=== PATIENT | female | born 1990 | race Caucasian/White ===

== ENCOUNTER 2018-07-24 15:06 | Inpatient (IN) ==
--- NOTE | 2018-07-24 15:34 | P.HPOB ---
History of Present Illness Primary Care Physician: NOT REQUIRED 27-year-old female, at 40 weeks and 2 days gestation, is sent from OB ultrasound for an LILY of 5, with estimated weight 8 pounds. She denies any regular contractions. No leakage of fluid. No vaginal bleeding. OB history: Uncomplicated Medical history: Negative Surgical history: Negative Medications: vitamin Allergies: Negative PMFSH - History History Provided By: Patient - Tobacco History Smoking Status: Never smoker - Substance Use History Substance History: No History of Abuse - Travel History History of Recent Travel: No Medications and Allergies Allergies Allergy/AdvReac Type Severity Reaction Status Date / Time Penicillins Allergy Unknown unknown Verified 07/15/18 18:41 possible childhood reaction Home Medications Medication Instructions Recorded Confirmed Type evening primrose oil 500 mg PO TID 07/15/18 07/15/18 History [id number] acid 1 tab PO DAILY 07/15/18 07/15/18 History [PreNata] Exam Vital signs: Vital Signs 07/24/18 15:30 Temperature 98.7 F Pulse Rate 113 H Respiratory Rate 20 Blood Pressure 121/68 Caprini VTE Risk Assessment Caprini VTE Risk Assessment: No/Low Risk (score <= 1) Caprini Risk Assessment Model: Point Value = 1 Point Value = 2 Point Value = 3 Point Value = 5 Age 41-60 Minor surgery BMI > 25 kg/m2 Swollen legs Varicose veins or History of unexplained or recurrent spontaneous Oral contraceptives or hormone replacement Sepsis (< 1 month) Serious lung disease, including pneumonia (< 1 month) Abnormal pulmonary function Acute myocardial infarction Congestive heart failure (< 1 month) History of inflammatory bowel disease Medical patient at bed rest Age 61-74 Arthroscopic surgery Major open surgery (> 45 min) Laparoscopic surgery (> 45 min) Malignancy Confined to bed (> 72 hours) Immobilizing plaster cast Central venous access Age >= 75 History of VTE Family history of VTE Factor V Leiden Prothrombin [id number] Lupus anticoagulant Anticardiolipin antibodies Elevated serum homocysteine Heparin-induced thrombocytopenia Other congenital or acquired thrombophilia Stroke (< 1 month) Elective arthroplasty Hip, pelvis, or leg fracture Acute spinal cord injury (< 1 month) Prophylaxis Regimen: Total Risk Factor Score Risk Level Prophylaxis Regimen 0-1 Low Early ambulation 2 Moderate Order ONE of the following: *Sequential Compression Device (SCD) *Heparin 5000 units SQ BID 3-4 Higher Order ONE of the following medications: *Heparin 5000 units SQ TID *Enoxaparin/Lovenox 40 mg SQ daily (WT < 150 kg, CrCl > 30 mL/min) *Enoxaparin/Lovenox 30 mg SQ daily (WT < 150 kg, CrCl > 10-29 mL/min) *Enoxaparin/Lovenox 30 mg SQ BID (WT < 150 kg, CrCl > 30 mL/min) AND/OR *Sequential Compression Device (SCD) 5 or more Highest Order ONE of the following medications: *Heparin 5000 units SQ TID (Preferred with Epidurals) *Enoxaparin/Lovenox 40 mg SQ daily (WT < 150 kg, CrCl > 30 mL/min) *Enoxaparin/Lovenox 30 mg SQ daily (WT < 150 kg, CrCl > 10-29 mL/min) *Enoxaparin/Lovenox 30 mg SQ BID (WT < 150 kg, CrCl > 30 mL/min) AND *Sequential Compression Device (SCD) Assessment and Plan - Diagnosis (1) Oligohydramnios Code(s): Z3A.39 - 39 weeks gestation of Status: Acute (2) with 39 completed weeks gestation Code(s): Z3A.39 - 39 weeks gestation of Status: Acute (3) Contracted pelvis Code(s): O47.1 - False labor at or after 37 completed weeks of gestation Status: Acute - Plan 27-year-old female, at 40 weeks and 2 days gestation, is sent from OB ultrasound for an LILY of 5, with estimated weight 8 pounds. 1) c/s for oligo/LGA -Admit to L&D for for oligo/LGA -Risks and benefits of versus vaginal delivery discussed with patient at length, patient consented and decided to proceed with -Category 1 tracing, no decelerations -Preoperative orders -N.p.o. since 1 PM 2) oligohydramnios - proceed w/ c/s as above Pt seen and discussed with Dr. Leobardo Welsh, [employer] Hospitalist Attending note patient seen with residents PGY 3. Received a call patient 40+ week with reactive NST BPP however 8 out of 10 -2 for LILY of 5. Estimated weight by ultrasound today 8 pounds 14 ounces. Patient seen and examined mother had a previous history of delivery for the patient which she states at was 9 pounds 2 ounces discussed with the patient pelvis by clinical evaluation contracted however ultrasound can be off by 2 pounds. Patient offered trial of labor versus delivery patient elects for delivery alternatives benefits complications including but not limited to maternal injury anesthesia related risks infection hemorrhage reoperation risk patient expressed verbal understanding. heart rate category 1 nonemergent delayed due to patient having a full stomach will wait for completed 6 hours. Will change that time parameter showed indications for maternal present.
[2018-07-24] MEDS ORDERED: ceFAZolin 2 GM Premix Inj 2 GM/50 ML PIGGYBACK IV.SIG PRN (16:35)
[2018-07-24] MEDS ORDERED: Citric Acid/Sodium Citrate Liq 30 ML UDC PO SCH (16:45)
[2018-07-24] MEDS ORDERED: Sodium Chloride 0.9% 2 ML Flush PRN IV.FLUSH (16:48)
[2018-07-24 17:04] LABS: Baso % (Auto) 0.3 % (0.0-2.0); Eos % (Auto) 0.2 % (0.0-4.0); Hematocrit 30.2 % (35.0-46.0); Hemoglobin 10.2 gm/dL (11.6-15.3); Lymph # (Auto) 1.6 th/mm3 (1.0-4.8); Lymph % (Auto) 16.5 % (9.0-44.0); Mean Corpuscular HGB Conc 33.9 % (32.0-36.0); Mean Corpuscular Hemoglobin 25.9 pg (27.0-34.0); Mean Corpuscular Volume 76.4 fL (80.0-100.0); Mean Platelet Volume 10.4 fL (7.0-11.0); Mono # (Auto) 0.6 th/mm3 (0.0-0.9); Mono % (Auto) 6.1 % (0.0-8.0); Neut # (Auto) 7.3 th/mm3 (1.8-7.7); Neut % (Auto) 76.9 % (16.0-70.0); Platelet Count 115 th/mm3 (150-450); Red Blood Count 3.95 mil/mm3 (4.00-5.30); Red Cell Distribution Width 16.7 % (11.6-17.2); White Blood Count 9.5 th/mm3 (4.0-11.0)
[2018-07-24 17:49] LABS: Amphetamine Screen,Urine Neg (Neg); Barbiturate Screen,Urine Neg (Neg); Cannabinoid Screen,Urine Neg (Neg); Cocaine Screen,Urine Neg (Neg)
[2018-07-24 17:55] LABS: Opiate Screen,Urine Neg (Neg)
[2018-07-24 18:08] LABS: Alanine Aminotransferase 13 U/L (10-53); Albumin 2.6 g/dL (3.4-5.0); Anion Gap 13 meq/L (5-15); Aspartate Aminotransferase 15 U/L (15-37); Blood Urea Nitrogen 8 mg/dL (7-18); Calcium 7.8 mg/dL (8.5-10.1); Carbon Dioxide 23.5 meq/L (21.0-32.0); Chloride 105 meq/L (98-107); Glomerular Filtration Rate Greater Than 89 mL/min (>89); Glucose,Random 90 mg/dL (74-106); Potassium 3.8 meq/L (3.5-5.1); Sodium 141 meq/L (136-145)
[2018-07-24 18:11] LABS: Alkaline Phosphatase 190 U/L (45-117); Total Protein 6.2 g/dL (6.4-8.2)
[2018-07-24] MEDS ORDERED: Clindamycin 600 mg/NS Premix 600 MG/50 ML PIGGYBACK IV.SIG SCH (19:00)
[2018-07-24] MEDS ORDERED: Sodium Chloride 0.9% 2 ML Flush BID IV.FLUSH SCH (21:00)
[2018-07-24] MEDS: Clindamycin 900 mg/NS Premix 900 MG/50 ML PIGGYBACK IV.SIG SCH (22:31)
[2018-07-24] MEDS ORDERED: Morphine Sulfate PF Inj 5 MG/10 ML Ampul ONE (22:46)
[2018-07-24] MEDS ORDERED: Phenylephrine/NS 1000 MCG/10ML Syringe IV.PUSH ONE (22:48)
[2018-07-24] MEDS ORDERED: Ketorolac Inj 30 MG/ML (IVP) Vial IV.PUSH ONE (22:48)
[2018-07-24] MEDS ORDERED: fentaNYL Citrate Inj 100 MCG/2 ML Ampul ONE (23:25)
--- NOTE | 2018-07-25 00:13 | P.OP ---
- Preoperative Diagnosis (1) Suspected macroscopic fetus (2) Oligohydramnios (3) Contracted pelvis (4) 40 weeks gestation of - Postoperative Diagnosis (1) Oligohydramnios (2) Contracted pelvis (3) 40 weeks gestation of (4) Suspected macroscopic fetus Date of procedure: 07/25/18 Procedure: Primary low uterine segment transverse section Anesthesia: spinal Surgeon: Elizabeth Rogers MD Float Operator: solder technician Estimated blood loss (mL): 500 Pathology: none sent Operation and Findings: Patient is a 27-year-old at 40 weeks 3 days gestation received a call from her provider at [facility] reactive however BPP -2 for LILY of 5 also estimated weight 8 lbs. 14 oz. patient subsequently presents for evaluation pelvic exam contracted pelvis estimated weight by Chinedu's approximately 8-1/2 pounds patient counseled on alternatives benefits complications offered a trial of labor versus delivery patient elects delivery alternatives benefits complications including but not limited to risk of permanent injury to the bowel bladder nerve blood vessels and instruction in the abdomen or pelvis including the fetus. Hemorrhage, reoperation risk. Patient expressed verbal understanding subsequently she was taken to the OR where she was placed under spinal analgesia without incident. Prepped and draped in normal sterile fashion. Pfannenstiel incision was made through the skin. Incision was carried down to the underlying layer of fascia which was incised in the midline dissected laterally digitally superior aspect of the fascia was grasped with Thayer clamps 2 dissected off from the underlying rectus muscle rectus muscle was blood tensions to the peritoneum with care to avoid the bladder. Bladder blade was placed vesicouterine peritoneum identified nicked in the midline subsequently extended laterally with Metzenbaum scissors reposition of the bladder blade. Transverse incision on the lower uterine segment with scalpel. Delivery of the vertex nares and mouth were bulb suctioned followed by delivery of the remainder of the body. A viable infant male delivered without incident Apgars 8 9. Subsequently cord blood collected placenta was manually removed the uterus was externalized cleared of all clot and debris uterus was closed with 1- 0 chromic in a running locked fashion followed by second imbricating Lembert suture. [id number] 2 in the right apex. Paracolic gutters were cleared of all clot and debris uterus was repositioned and the pelvic abdominal cavity. Note no adnexal masses noted. Uterine incision was once again reevaluated once hemostasis was noted to be present proceeded to identify the fascia which was closed with 1 Vicryl in a continuous fashion. Subcutaneous bleeding which was minimal controlled with Bovie pencil. Skin was closed with Monocryl in a continuous fashion. Patient tolerated procedure well sponge lap needle counts correct 2 patient in route to recovery room in stable condition.
[2018-07-25] MEDS ORDERED: Oxytocin 30 Units/500ml Premix 30 UNITS/500 ML BAG IV.SIG ONE (00:51)
[2018-07-25] MEDS ORDERED: Naloxone Inj 0.4 MG/ML Vial IV.PUSH PRN (01:44)
[2018-07-25 02:06] LABS: Bacteria,Urine Rare /hpf; Bilirubin,Urine Negative (Negative); Clarity,Urine Cloudy (Clear); Color,Urine Red (Yellw/Straw); Glucose,Urine (UA) Negative (Negative); Leukocyte Esterase,Urine Negative (Negative); Mucus,Urine Few /lpf (Occasional); Nitrite,Urine Negative (Negative); Squamous Epithelial Cell,Urine 2 /hpf (0-5)
[2018-07-25 02:18] LABS: Amphetamine Urine With Conf Neg (Neg); Benzodiazepine Urine With Conf Neg (Neg)
[2018-07-25] MEDS ORDERED: Metoclopramide 10 MG Tablet PO SCH (03:30)
[2018-07-25] MEDS ORDERED: Oxytocin 30 Units/500ml Premix 30 UNITS/500 ML BAG IV.SIG PRN (05:51)
--- NOTE | 2018-07-25 09:01 | P.PNOB ---
Subjective Post day: 1 Interval history: Patient is a 27-year-old delivered at 40 weeks and 2 days. Patient is day 1 after c/s due to oligo and LGA . Patient's pain is well- controlled. Patient reports nausea early this AM. Patient is walking without lower extremity pain or shortness of breath. She denies CP. Objective Vital Signs/I&O: Vital Signs 07/24/18 15:30 07/24/18 15:55 07/24/18 16:25 Temperature 98.7 F Pulse Rate 113 H 101 H 96 H Respiratory Rate 20 Blood Pressure 121/68 07/24/18 16:40 07/24/18 16:59 07/24/18 17:10 Temperature Pulse Rate 110 H 93 H 96 H Respiratory Rate Blood Pressure 07/24/18 17:25 07/24/18 17:40 07/24/18 18:10 Temperature Pulse Rate 96 H 90 99 H Respiratory Rate Blood Pressure 07/24/18 18:15 07/24/18 18:20 07/24/18 19:15 Temperature Pulse Rate 95 H 89 92 H Respiratory Rate 18 Blood Pressure 07/24/18 19:17 07/24/18 19:25 07/24/18 19:30 Temperature 98.0 F Pulse Rate 101 H 100 H 98 H Respiratory Rate 18 Blood Pressure 125/73 07/24/18 19:40 07/24/18 19:50 07/24/18 19:55 Temperature Pulse Rate 90 91 H 97 H Respiratory Rate Blood Pressure 07/24/18 21:36 07/24/18 21:40 07/24/18 22:15 Temperature Pulse Rate 100 H 89 102 H Respiratory Rate 18 Blood Pressure 07/24/18 22:26 07/24/18 22:27 07/24/18 22:35 Temperature 97.9 F Pulse Rate 98 H 99 H 96 H Respiratory Rate 18 Blood Pressure 111/57 L 07/25/18 00:15 07/25/18 00:30 07/25/18 00:45 Temperature 97.4 F L Pulse Rate 75 88 93 H Respiratory Rate 24 20 18 Blood Pressure 99/59 L 113/66 99/58 L 07/25/18 01:00 07/25/18 01:10 07/25/18 03:00 Temperature 97.5 F L 98.9 F Pulse Rate 89 91 H 80 Respiratory Rate 18 18 20 Blood Pressure 112/54 L 118/60 116/69 Intake & Output 07/24/18 07/25/18 07/25/18 18:59 06:59 18:59 Intake Total 50 / 50 Balance 50 / 50 Intake: IV 50 / 50 Cleocin 900 mg/NS Premix 900 mg 50 / 50 In 50 ml @ 100 mls/hr IV.SIG Q8H [facility] Rx#:[id number] Result Diagrams: 07/24/18 16:40 07/24/18 06:40 Objective Remarks: GENERAL: Well-nourished, well-developed patient. No acute distress. SKIN: Warm and dry. No rash. EYES: No scleral icterus. No injection or drainage. PERRLA. EOMI. HENT: Normocephalic. Atraumatic. MMM. NECK: No visible JVD or lymphadenopathy. CARDIOVASCULAR: Warm and well perfused. RESPIRATORY: Normal respiratory effort. GASTROINTESTINAL: Abdomen nondistended. MUSCULOSKELETAL: Strength grossly WNL. BACK: Without obvious deformity. NEURO/PSYCH: Afocal. Awake, alert, and oriented x3. Medications and IVs: Active Medications Citric Acid/Sodium Citrate (Sodium Citrate/Citric Acid Liq) 30 ml PO VISUAL SPECIALIST [facility] Stop: 07/28/18 16:44 Diphenhydramine HCl (Benadryl Inj) 25 mg IV.PUSH Q6H PRN PRN Reason: MILD TO MODERATE ITCHING Stop: 07/26/18 01:43 Diphenhydramine HCl (Benadryl) 50 mg PO Q6H PRN PRN Reason: MILD TO MODERATE ITCHING Stop: 07/26/18 01:43 Diphtheria/Pertussis/Tetanus Vacc (Boostrix Vaccine Inj) 0.5 ml IM .ONCE ONE Stop: 07/26/18 16:01 Cefazolin Sodium/Dextrose (Ancef 2 Gm Premix Inj) 2 gm in 50 mls @ 100 mls/hr IV.SIG VISUAL SPECIALIST PRN PRN Reason: surgery Stop: 07/28/18 16:34 Clindamycin/Sodium Chloride (Cleocin 900 Mg/Ns Premix) 900 mg in 50 mls @ 100 mls/hr IV.SIG Q8H [facility] Last Infusion: 07/25/18 00:42 Dose: Infused Lactated Ringer's (Lr 1000 Ml Inj) 1,000 mls @ 100 mls/hr IV.CONT .Q10H JOHN Stop: 07/26/18 01:50 Last Admin: 07/25/18 03:52 Dose: 100 mls/hr Oxytocin (Pitocin 30 Units/Ns 500 Ml Premix) 30 units in 500 mls @ 100 mls/hr IV.SIG UNSCH PRN PRN Reason: Heavy bleeding Ibuprofen (Motrin) 800 mg PO Q8H PRN PRN Reason: cramping Measles/Mumps/Rubella Vaccine Live (M-M-R Ii Vaccine Inj) 0.5 ml SQ .ONCE ONE Stop: 07/26/18 16:01 Miscellaneous Information ([facility] Nursing Information) 1 each OTHER UNSCH PRN PRN Reason: SEE LABEL COMMENTS Stop: 07/26/18 01:43 Miscellaneous Information ([facility] [place] [facility] Nursing Information) 1 each OTHER UNSCH PRN PRN Reason: SEE LABEL COMMENTS Stop: 07/26/18 01:43 Naloxone HCl (Narcan Inj) 0.4 mg IV.PUSH UNSCH PRN PRN Reason: SEE LABEL COMMENTS Stop: 07/26/18 01:43 Oxycodone/Acetaminophen (Percocet 5/325 Mg) 1 tab PO Q4H PRN PRN Reason: PAIN SCALE 3 TO 5 Oxycodone/Acetaminophen (Percocet 5/325 Mg) 2 tab PO Q4H PRN PRN Reason: PAIN SCALE 6 TO 10 Sodium Chloride (Ns Flush) 2 ml IV.FLUSH BID JOHN Sodium Chloride (Ns Flush) 2 ml IV.FLUSH PRN PRN PRN Reason: FLUSH AFTER USING IV ACCESS Assessment and Plan - Diagnosis (1) delivery delivered Code(s): O82 - Encounter for delivery without indication Status: Acute (2) Oligohydramnios Code(s): Z3A.39 - 39 weeks gestation of Status: Resolved - Plan Patient is a 27-year-old delivered at 40 weeks and 2 days. Patient is day 1 after c/s for oligo and LGA. Patient was counseled to do 6 weeks of pelvic rest. Patient was counseled to follow up in 6 weeks. --AF VSS --Continue routine care --Motrin and Percocet when necessary for pain --Encourage OOB --Pelvic rest for 6 weeks will need follow-up appointment at that time.
[2018-07-25] MEDS: Clindamycin 900 mg/NS Premix 900 MG/50 ML PIGGYBACK IV.SIG SCH ×3 (11:30→18:49)
[2018-07-25 12:21] LABS: Baso % (Auto) 0.3 % (0.0-2.0); Hematocrit 25.5 % (35.0-46.0); Lymph # (Auto) 1.3 th/mm3 (1.0-4.8); Lymph % (Auto) 8.3 % (9.0-44.0); Mean Corpuscular HGB Conc 31.5 % (32.0-36.0); Mean Corpuscular Hemoglobin 24.6 pg (27.0-34.0); Mean Corpuscular Volume 78.2 fL (80.0-100.0); Mean Platelet Volume 10.2 fL (7.0-11.0); Mono # (Auto) 0.9 th/mm3 (0.0-0.9); Mono % (Auto) 6.2 % (0.0-8.0); Neut # (Auto) 13.1 th/mm3 (1.8-7.7); Neut % (Auto) 85.2 % (16.0-70.0); Platelet Count 114 th/mm3 (150-450); Red Blood Count 3.27 mil/mm3 (4.00-5.30); Red Cell Distribution Width 16.9 % (11.6-17.2); White Blood Count 15.4 th/mm3 (4.0-11.0)
[2018-07-26] MEDS: Clindamycin 900 mg/NS Premix 900 MG/50 ML PIGGYBACK IV.SIG SCH (04:09)
[2018-07-26 05:57] LABS: Baso % (Auto) 0.3 % (0.0-2.0); Eos % (Auto) 0.2 % (0.0-4.0); Hematocrit 24.9 % (35.0-46.0); Hemoglobin 7.9 gm/dL (11.6-15.3); Lymph # (Auto) 2.1 th/mm3 (1.0-4.8); Lymph % (Auto) 16.6 % (9.0-44.0); Mean Corpuscular HGB Conc 31.6 % (32.0-36.0); Mean Corpuscular Hemoglobin 24.8 pg (27.0-34.0); Mean Corpuscular Volume 78.6 fL (80.0-100.0); Mean Platelet Volume 10.4 fL (7.0-11.0); Mono # (Auto) 0.8 th/mm3 (0.0-0.9); Mono % (Auto) 6.3 % (0.0-8.0); Neut # (Auto) 9.7 th/mm3 (1.8-7.7); Neut % (Auto) 76.6 % (16.0-70.0); Platelet Count 109 th/mm3 (150-450); Red Blood Count 3.18 mil/mm3 (4.00-5.30); Red Cell Distribution Width 16.8 % (11.6-17.2); White Blood Count 12.7 th/mm3 (4.0-11.0)
[2018-07-26 08:13] VITALS: BP 98/61; PULSE 81; RESP 16; TEMP 98.9
[2018-07-26] MEDS ORDERED: Senna/Docusate Sodium 8.6/50 MG Tablet PO SCH (09:00)
--- NOTE | 2018-07-26 09:27 | P.PNOB ---
Subjective Post op day: 2 Interval history: , pod #2 from primary for macrosomia. Patient has been eating and drinking without difficulty. Patient has been ambulating voiding without difficulty. She denies any chest pain/shortness of breath/dizziness. No calf tenderness. Objective Vital Signs/I&O: Vital Signs 07/25/18 09:31 07/25/18 11:34 07/25/18 11:35 Temperature 97.6 F 98.7 F Pulse Rate 80 Respiratory Rate 20 Blood Pressure 104/60 07/25/18 16:14 07/25/18 20:50 07/26/18 08:00 Temperature 99.1 F 98.6 F 98.9 F Pulse Rate 93 H 88 81 Respiratory Rate 21 16 Blood Pressure 105/67 99/60 L 98/61 L Intake & Output 07/25/18 07/26/18 07/26/18 18:59 06:59 18:59 Intake Total 50 / 50 50 / 50 Balance 50 / 50 50 / 50 Intake: IV 50 / 50 50 / 50 Cleocin 900 mg/NS Premix 900 mg 50 / 50 50 / 50 In 50 ml @ 100 mls/hr IV.SIG Q8H [facility] Rx#:[id number] Result Diagrams: 07/26/18 05:13 07/24/18 06:40 Objective Remarks: GENERAL: Well-nourished, well-developed patient. CARDIOVASCULAR: Regular rate and rhythm without murmurs, gallops, or rubs. RESPIRATORY: Breath sounds equal bilaterally. No accessory muscle use. ABDOMEN/GI: Abdomen soft, non-tender, bowel sounds present. Incision: Clean, dry and intact. Dressing in place. Fundus: Firm, non-tender at umbilicus. GENITOURINARY: Light to moderate bleeding. EXTREMITIES: No cyanosis or edema, non-tender, without signs of DVT. Medications and IVs: Active Medications Citric Acid/Sodium Citrate (Sodium Citrate/Citric Acid Liq) 30 ml PO RADIAL ARM SAW OPERATOR [facility] Stop: 07/28/18 16:44 Diphtheria/Pertussis/Tetanus Vacc (Boostrix Vaccine Inj) 0.5 ml IM .ONCE ONE Stop: 07/26/18 16:01 Cefazolin Sodium/Dextrose (Ancef 2 Gm Premix Inj) 2 gm in 50 mls @ 100 mls/hr IV.SIG RADIAL ARM SAW OPERATOR PRN PRN Reason: surgery Stop: 07/28/18 16:34 Clindamycin/Sodium Chloride (Cleocin 900 Mg/Ns Premix) 900 mg in 50 mls @ 100 mls/hr IV.SIG Q8H JOHN Last Admin: 07/26/18 04:09 Dose: 100 mls/hr Oxytocin (Pitocin 30 Units/Ns 500 Ml Premix) 30 units in 500 mls @ 100 mls/hr IV.SIG UNSCH PRN PRN Reason: Heavy bleeding Ibuprofen (Motrin) 800 mg PO Q8H PRN PRN Reason: cramping Last Admin: 07/26/18 08:42 Dose: 800 mg Measles/Mumps/Rubella Vaccine Live (M-M-R Ii Vaccine Inj) 0.5 ml SQ .ONCE ONE Stop: 07/26/18 16:01 Oxycodone/Acetaminophen (Percocet 5/325 Mg) 1 tab PO Q4H PRN PRN Reason: PAIN SCALE 3 TO 5 Last Admin: 07/26/18 04:08 Dose: 1 tab Oxycodone/Acetaminophen (Percocet 5/325 Mg) 2 tab PO Q4H PRN PRN Reason: PAIN SCALE 6 TO 10 Last Admin: 07/26/18 08:43 Dose: 2 tab Senna/Docusate Sodium (Lucia-Colace) 1 tab PO BID [facility] Last Admin: 07/26/18 08:43 Dose: 1 tab Sodium Chloride (Ns Flush) 2 ml IV.FLUSH BID [facility] Last Admin: 07/25/18 21:40 Dose: 2 ml Sodium Chloride (Ns Flush) 2 ml IV.FLUSH PRN PRN PRN Reason: FLUSH AFTER USING IV ACCESS Assessment and Plan - Diagnosis (1) delivery delivered Code(s): O82 - Encounter for delivery without indication Status: Acute Plan: , pod #2 from primary for macrosomia. -Continue regular postop care -Patient cleared for when she is comfortable for discharge, either today or tomorrow -Continue pain management -Continue to monitor vital signs every 4 hours -Encourage out of bed -Advised pelvic rest x 6 weeks
[2018-07-26] MEDS ORDERED: Diphtheria/Tetanus/Pertussis Vaccine Inj 0.5 ML Syringe IM ONE (16:00)
[2018-07-26] MEDS ORDERED: Measles/Mumps/Rubella Vaccine Inj 0.5 ML Vial SQ ONE (16:00)
== END 2018-07-26 12:43 | disposition home or self-care (01) ==
LOC: HOBED 15:06 → H2E 16:22 → H1EA 07-25 01:55
PROVIDERS: ADMIT Obstetrics & Gynecology; ATTEND Obstetrics & Gynecology